=== PATIENT | male | born 2005 | race Hispanic/Latino ===

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

== ENCOUNTER 2024-02-05 13:03 | Emergency (ER) | payer SELFPAY ==
--- OUTSIDE RECORDS SUMMARY | 2024-02-05 13:06 | XMS REPORT | Continuity of Care Document ---
Author Name Unknown Address [address] [place] [address] [place] [address] thconnect Address [address] [place] [address] [address] [place] [address] Care Team Providers Care Java Developer Name Role Phone MEGHANA VERDUGO Attending Clinician Unavailabl e Lab, Adc Fam Pob I Attending Clinician Jeniffer le Meghana Izquierdo Attending Clinician Allergies, Adverse Reactions, Alerts Allergy Name Allergy Type Status Severity Reaction(s) Onset Date Inactive Date Treating Clinician Comments Source NO KNOWN ALLERGIE S Drug Class Active [facility] Social History Social Habit Start Date Stop Date Quantity Comments Source Sex Assigned At [facility] Exposure to SARS-CoV-2 (event) Yes [facility] Smoking Status Start Date Stop Date Source Unknown if ever smoked Unive [facility] Encounters Start Date/Time End Date/Time Encounter Type Admission Type Attending Clinicians Care Facility Care Department Encounter ID Source 2019-12-01 17:00:00 2019-12-01 17:00:00 Outpatient R MEGHANA VERDUGO [facility] [id number] [facility] 2019-12-01 14:39:38 2019-12-01 14:59:38 Laboratory Only Lab, Adc Fam Pob I Meghana Verdugo [facility] [address] [id number] [facility]
[2024-02-05 14:00] LABS: SARS-CoV-2 Antigen CONTROL BLUE LINE VIS/BG OK; SARS-CoV-2 Antigen Rapid Res Negative (Negative)
--- NOTE | 2024-02-05 14:18 | ER ---
Nurse's Notes [facility] Name: Danny Mar Age: 18 yrs Sex: Male : 2005 Arrival Date: 02/05/2024 Time: 13:03 Bed 12 Private MD: Diagnosis: Hemoptysis;Cough;Tobacco abuse counseling;Tobacco use Presentation: 02/04 13:20 Chief complaint: Patient states: Cough X1 week. Pt states that today he started having cm10 blood tinged sputum. Coronavirus screen: Client denies travel out of the [place] in the last 14 days. Ebola Screen: Patient denies travel to an Ebola-affected area in the 21 days before illness onset. No symptoms or risks identified at this time. Initial Sepsis Screen: Does the patient meet any 2 criteria? No. Patient's initial sepsis screen is negative. Does the patient have a suspected source of infection? No. Patient's initial sepsis screen is negative. Risk Assessment: Do you want to hurt yourself or someone else? Patient reports no desire to harm self or others. Onset of symptoms was February 05, 2024. 13:20 Method Of Arrival: Ambulatory cm10 13:20 Acuity: BRITTANY 4 cm10 Triage Assessment: 13:21 General: Appears in no apparent distress. comfortable, Behavior is calm, cooperative. cm10 Neuro: No deficits noted. Level of Consciousness is awake, alert, obeys commands, Oriented to person, place, time, situation, Appropriate for age. Respiratory: No deficits noted. Airway is patent Respiratory effort is even, unlabored, Respiratory pattern is regular, symmetrical. Historical: - Allergies: 13:21 No Known Allergies; cm10 - Home Meds: 13:21 None [Active]; cm10 - PMHx: 13:21 None; cm10 - PSHx: 13:21 None; cm10 - Immunization history:: Adult Immunizations up to date. - Infectious Disease History:: Denies. - Social history:: Smoking status: Patient denies any tobacco usage or history of. Patient uses street drugs, marijuana. Screenin:15 [facility] ED Fall Risk Assessment (Adult) History of falling in the last 3 months, hb including since admission No falls in past 3 months (0 pts) Confusion or Disorientation No (0 pts) Intoxicated or Sedated No (0 pts) Impaired Gait No (0 pts) Mobility Assist Device Used No (0 pt) Altered Elimination No (0 pt) Score/Fall Risk Level 0 - 2 = Low Risk Oriented to surroundings, Maintained a safe environment, Educated pt \T\ family on fall prevention, incl call for assistance when getting out of bed. Abuse screen: Denies threats or abuse. Denies injuries from another. Nutritional screening: No deficits noted. Tuberculosis screening: No symptoms or risk factors identified. Assessment: 14:15 General: Appears in no apparent distress. Behavior is calm, cooperative. Pain: Pain hb currently is 3 out of 10 on a pain scale. 14:15 Neuro: Level of Consciousness is awake, alert, obeys commands, Oriented to person, hb place, time, situation. Cardiovascular: Patient's skin is warm and dry. Respiratory: Reports cough that is Respiratory effort is even, unlabored, Respiratory pattern is regular, symmetrical. GI: No signs and/or symptoms were reported involving the gastrointestinal system. : No signs and/or symptoms were reported regarding the genitourinary system. EENT: No signs and/or symptoms were reported regarding the EENT system. Derm: Skin is pink, warm \T\ dry. Musculoskeletal: No signs and/or symptoms reported regarding the musculoskeletal system. Vital Signs: 13:20 BP 142 / 88; Pulse 76; Resp 16; Temp 97.2; Pulse Ox 100% ; Weight 49.44 kg; Height 5 cm10 ft. 7 in. ; Pain 8/10; 13:20 Body Mass Index 17.07 (49.44 kg, 170.18 cm) - Percentile 0.2 % cm10 13:20 Pain Scale: Adult cm10 ED Course: 13:09 Patient arrived in ED. ra3 13:15 Papi Davis MD is Attending Physician. laurence 13:21 Triage completed. cm10 13:22 Arm band placed on Patient placed in an exam room, on a stretcher. cm10 13:27 Strep Sent. cm10 13:27 Flu Sent. cm10 13:27 SARS RAPID Sent. cm10 13:27 COVID swab sent to lab. Flu and/or RSV swab sent to lab. Strep swab sent to lab. cm10 14:15 Patient has correct armband on for positive identification. Provided Education on: hb medication, follow up. 14:15 No provider procedures requiring assistance completed. Patient did not have IV access hb during this emergency room visit. 14:56 Chest Pa And Lat (2 Views) XRAY In Process Unspecified. EDMS Administered Medications: No medications were administered Medication: 14:15 VIS not applicable for this client. hb Outcome: 14:15 Discharged to home ambulatory, hb 14:15 Condition: stable 14:15 Discharge instructions given to patient, Instructed on discharge instructions, follow up and referral plans. medication usage, Demonstrated understanding of instructions, follow-up care, medications, Prescriptions given X 1, 14:17 Discharge ordered by MD. dang 15:11 Patient left the ED. hb Signatures: Dispatcher [employer] EDMS Papi Davis MD MD cha Baxter, Heather RN RN Purnima Song RN RN Liat Quintanilla 3
--- NOTE | 2024-02-05 14:18 | EDPHYS ---
Physician Documentation [facility] Name: Danny Mar Age: 18 yrs Sex: Male : 2005 Arrival Date: 02/05/2024 Time: 13:03 Bed 12 Private MD: ED Physician Papi Davis HPI: 02/04 14:13 This 18 yrs old Male presents to ER via Ambulatory with complaints of Painful laurence Cough - coughing up blood. 14:13 The patient or guardian reports cough, that is intermittent. Onset: The laurence symptoms/episode began/occurred 3 day(s) ago. Severity of symptoms: At their worst the symptoms were mild, in the emergency department the symptoms are unchanged. Modifying factors: The symptoms are alleviated by nothing, the symptoms are aggravated by nothing. The patient has not experienced similar symptoms in the past. Historical: - Allergies: 13:21 No Known Allergies; cm10 - Home Meds: 13:21 None [Active]; cm10 - PMHx: 13:21 None; cm10 - PSHx: 13:21 None; cm10 - Immunization history:: Adult Immunizations up to date. - Infectious Disease History:: Denies. - Social history:: Smoking status: Patient denies any tobacco usage or history of. Patient uses street drugs, marijuana. ROS: 14:13 Constitutional: Negative for fever, chills, and weight loss, Eyes: Negative for injury, laurence pain, redness, and discharge, ENT: Negative for injury, pain, and discharge, Neck: Negative for injury, pain, and swelling, Cardiovascular: Negative for chest pain, palpitations, and edema, Abdomen/GI: Negative for abdominal pain, nausea, vomiting, diarrhea, and constipation, Back: Negative for injury and pain, : Negative for injury, bleeding, discharge, and swelling, MS/Extremity: Negative for injury and deformity, Skin: Negative for injury, rash, and discoloration, Neuro: Negative for headache, weakness, numbness, tingling, and seizure, Psych: Negative for depression, anxiety, suicide ideation, homicidal ideation, and hallucinations, Allergy/Immunology: Negative for hives, rash, and allergies, Endocrine: Negative for neck swelling, polydipsia, polyuria, polyphagia, and marked weight changes, Hematologic/Lymphatic: Negative for swollen nodes, abnormal bleeding, and unusual bruising, 14:13 Respiratory: Positive for cough, hemoptysis, Exam: 14:13 Constitutional: This is a well developed, well nourished patient who is awake, alert, laurence and in no acute distress. Head/Face: Normocephalic, atraumatic. Eyes: Pupils equal round and reactive to light, extra-ocular motions intact. Lids and lashes normal. Conjunctiva and sclera are non-icteric and not injected. Cornea within normal limits. Periorbital areas with no swelling, redness, or edema. ENT: Nares patent. No nasal discharge, no septal abnormalities noted. Tympanic membranes are normal and external auditory canals are clear. Oropharynx with no redness, swelling, or masses, exudates, or evidence of obstruction, uvula midline. Mucous membranes moist. Neck: Trachea midline, no thyromegaly or masses palpated, and no cervical lymphadenopathy. Supple, full range of motion without nuchal rigidity, or vertebral point tenderness. No Meningismus. Chest/axilla: Normal chest wall appearance and motion. Nontender with no deformity. No lesions are appreciated. Cardiovascular: Regular rate and rhythm with a normal S1 and S2. No gallops, murmurs, or rubs. Normal PMI, no JVD. No pulse deficits. Respiratory: Lungs have equal breath sounds bilaterally, clear to auscultation and percussion. No rales, rhonchi or wheezes noted. No increased work of breathing, no retractions or nasal flaring. Back: No spinal tenderness. No costovertebral tenderness. Full range of motion. Male : Normal genitalia with no discharge or lesions. Skin: Warm, dry with normal turgor. Normal color with no rashes, no lesions, and no evidence of cellulitis. 14:13 Respiratory: the patient does not display signs of respiratory distress, Respirations: normal, Breath sounds: are clear throughout, Respiratory rate: 16 14:13 Abdomen/GI: Inspection: abdomen appears normal, Vital Signs: 13:20 BP 142 / 88; Pulse 76; Resp 16; Temp 97.2; Pulse Ox 100% ; Weight 49.44 kg; Height 5 cm10 ft. 7 in. ; Pain 8/10; 13:20 Body Mass Index 17.07 (49.44 kg, 170.18 cm) - Percentile 0.2 % cm10 13:20 Pain Scale: Adult cm10 MDM: 13:16 Patient medically screened. [facility] 14:15 Differential Diagnosis: Obstructed Airway. Data reviewed: vital signs, nurses notes, [facility] radiologic studies, plain films. Consideration of Admission/Observation Escalation of care including admission/observation considered. I considered the following discharge prescriptions or medication management in the emergency department Medications were administered in the Emergency Department. See JUL. 02/04 13:16 Order name: SARS RAPID; Complete Time: 14:10 [facility] 02/04 13:16 Order name: Flu; Complete Time: 14:10 [facility] 02/04 13:16 Order name: Strep [facility] 02/04 14:03 Order name: Throat Culture [facility] 02/04 13:16 Order name: Chest Pa And Lat (2 Views) XRAY [facility] Administered Medications: No medications were administered Disposition Summary: 02/05/24 14:17 Discharge Ordered Notes: Location: Home [facility] Problem: new laurence Symptoms: have improved laurence Condition: Stable laurence Diagnosis - Hemoptysis laurence - Cough laurence - Tobacco abuse counseling laurence - Tobacco use laurence Followup: laurence - With: Private Physician - When: 2 - 3 days - Reason: Recheck today's complaints, Continuance of care, Re-evaluation by your physician Discharge Instructions: - Discharge Summary Sheet laurence - Hemoptysis laurence - Self-Destructive Behavior laurence - Steps to Quit Smoking laurence - Health Risks of Smoking laurence - Cool Mist Vaporizer laurence - Steps to Quit Smoking, Irrx-mx-Koym laurence - Cough, Adult, [id number]-bv-[id number] laurence - Cough, Adult laurence Forms: - Medication Reconciliation Form laurence - Antibiotic Education laurence - Prescription Opioid Use laurence - Patient Portal Instructions [facility] - Leadership Thank You Letter [facility] Prescriptions: - Tessalon Perles 100 mg Oral capsule - take 1 capsule ORAL route every 8 hours As needed; 30 capsule; Refills: 0, laurence Product Selection Permitted - Zithromax Z-Abdirahman 250 mg Oral tablet - take 1 tablet ORAL route as directed for 5 days Day 1 - take two (2) tablets laurence one time. Day 2, 3, 4 , 5 take one (1) tablet once daily.; 6 tablet; Refills: 0, Product Selection Permitted Signatures: Dispatcher [employer] Papi Yeh MD MD cha Martinez, Clarissa, RN RN cm10 Corrections: (The following items were deleted from the chart) 13:16 13:16 SARS-COV-2 Antigen Rapid+I.LAB.BRZ ordered. EDMS EDMS 13:16 13:16 Influenza Screen (A \T\ B)+BA.LAB.BRZ ordered. EDMS EDMS
[2024-02-05] MEDS ORDERED: AZITHROMYCIN 250 MG TAB ONE (14:59)
[2024-02-05 15:17] VITALS: BP 142/88; TEMP 97.2; O2SAT 100
--- NOTE | 2024-02-05 15:25 | RAD REPORT ---
EXAM DESCRIPTION: Chely oCntreras (2 Views)02/05/2024 2:55 pm CLINICAL HISTORY: Cough COMPARISON: 2012 FINDINGS: The lungs appear clear of acute infiltrate. The heart is normal size IMPRESSION: No acute abnormalities displayed
== END 2024-02-05 15:11 | disposition home or self-care (01) ==
LOC: ER 13:03
DX: R05.9 Cough, unspecified (principal); R04.2 Hemoptysis; F17.210 Nicotine dependence, cigarettes, uncomplicated; Z71.6 Tobacco abuse counseling; Z11.52 Encounter for screening for COVID-19
CPT/HCPCS: 36415; 71046; 87070; 87081; 87804; 87811; 99283

== ENCOUNTER 2024-06-22 14:10 | Emergency (ER) | payer SELFPAY ==
--- OUTSIDE RECORDS SUMMARY | 2024-06-22 14:13 | XMS REPORT | Continuity of Care Document ---
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 [place] [place] Exposure to SARS-CoV-2 (event) Yes [facility] Smoking Status Start Date Stop Date Source Unknown if ever smoked Unive [facility] Encounters Start Date/Time End Date/Time Encounter Type Admission Type Attending Clinicians Care Facility Care Department Encounter ID Source 2019-12-01 17:00:00 2019-12-01 17:00:00 Outpatient R MAXIMO VERDUGO [facility] [id number] [facility] 2019-12-01 14:39:38 2019-12-01 14:59:38 Laboratory Only Lab, Adc Fam Pob I Maximo Verdugo [facility] Office [facility] One [id number] [facility]
--- NOTE | 2024-06-22 14:38 | EDPHYS ---
Physician Documentation [facility] Name: Danny Mar Age: 19 yrs Sex: Male : 2005 Arrival Date: 06/22/2024 Time: 14:10 Bed Waiting Private MD: ED Physician Ranulfo Vega HPI: 06/22 14:30 This 19 yrs old Male presents to ER via Unassigned with complaints of Nose rn twitching. 14:30 The patient presents with Twitching. rn 14:32 Onset: The symptoms/episode began/occurred yesterday. Modifying factors: The symptoms rn are alleviated by nothing. the symptoms are aggravated by nothing. Severity of symptoms: At their worst the symptoms were mild in the emergency department the symptoms have improved. The patient has not experienced similar symptoms in the past. Patient reports noticed twitching of nose yesterday. Was researching what it could be and made himself more anxious. Father brought him in to reassure him. No difficulty breathing, no pain, no swelling, no eye involvement. No drainage. No fever or chills. No sinus problems. Currently seems resolved. No other muscular twitching of body.. Historical: - Allergies: 14:52 No Known Allergies; jl7 - Immunization history:: Adult Immunizations unknown. - Family history:: not pertinent. - Social history:: Smoking status: unknown. - Hospitalizations: : No recent hospitalization is reported. ROS: 14:32 Constitutional: Negative for fever, chills, and weight loss, Eyes: Negative for injury, rn pain, redness, and discharge, ENT: Negative for injury, pain, and discharge, Neck: Negative for injury, pain, and swelling, Cardiovascular: Negative for chest pain, palpitations, and edema, Respiratory: Negative for shortness of breath, cough, wheezing, and pleuritic chest pain, Neuro: Negative for headache, weakness, numbness, tingling, and seizure, Exam: 14:32 Constitutional: This is a well developed, well nourished patient who is awake, alert, rn and in no acute distress. Seems anxious and soft-spoken Head/Face: Normocephalic, atraumatic. ENT: Mild nasal turbinate swelling, no foreign body, no asymmetric swelling, no tenderness of nose or sinus, no erythema or swelling of cheek or periorbital regions. No visible twitching at this time. Respiratory: No increased work of breathing, no retractions or nasal flaring. Vital Signs: 14:49 jl7 14:49 None obtained jl7 MDM: 14:15 Medical Screening Exam initiated rn 14:32 Differential diagnosis: stress, stress reaction, muscle twitching, spasm. Data rn reviewed: vital signs, nurses notes, and as a result, I will discharge patient. Counseling: I had a detailed discussion with the patient and/or guardian regarding the historical points, exam findings, and any diagnostic results supporting the discharge/admit diagnosis, the need for outpatient follow up, to return to the emergency department if symptoms worsen or persist or if there are any questions or concerns that arise at home. Special discussion: I discussed with the patient/guardian in detail that at this point there is no indication for admission to the hospital. It is understood, however, that if the symptoms persist or worsen the patient needs to return immediately for re-evaluation. 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 Seems anxious Head/Face: Normocephalic, atraumatic. ENT: Mild nasal turbinate swelling, no foreign body, no asymmetric swelling, no tenderness of nose or sinus, no erythema or swelling of cheek or periorbital regions. No visible twitching at this time. Respiratory: No increased work of breathing, no retractions or nasal flaring. rn
--- NOTE | 2024-06-22 14:55 | ER ---
Nurse's Notes [facility] Name: Danny Mar Age: 19 yrs Sex: Male : 2005 Arrival Date: 06/22/2024 Time: 14:10 Bed Waiting Private MD: Diagnosis: Nasal twitching Presentation: 06/22 14:49 Chief complaint: ERP assessed pt and informed pt he would be discharged. Pt left as jl7 soon as ERP was done with his assessment. Coronavirus screen: At this time, the client does not indicate any symptoms associated with coronavirus-19. Ebola Screen: No symptoms or risks identified at this time. Initial Sepsis Screen: Does the patient have a suspected source of infection? No. Patient's initial sepsis screen is negative. Onset of symptoms is unknown. 14:49 Method Of Arrival: Ambulatory jl7 14:49 Acuity: BRITTANY 4 jl7 Historical: - Allergies: 14:52 No Known Allergies; jl7 - Immunization history:: Adult Immunizations unknown. - Family history:: not pertinent. - Social history:: Smoking status: unknown. - Hospitalizations: : No recent hospitalization is reported. Vital Signs: 14:49 jl7 14:49 None obtained jl7 ED Course: 14:12 Patient arrived in ED. im 14:15 Ranulfo Vega MD is Attending Physician. rn 14:52 Triage completed. jl7 Administered Medications: No medications were administered Outcome: 14:37 Discharge ordered by . rn 14:53 Discharged to home ambulatory, jl7 14:53 Condition: stable 14:53 Discharge instructions given to patient, ERP gave verbal discharge instructions 14:54 Patient left the ED. jl Signatures: Ranulfo Vega MD MD rn Leal, Jahala, RN RN jl7 Charis Ram im
== END 2024-06-22 14:54 | disposition home or self-care (01) ==
LOC: ER 14:10
DX: R25.3 Fasciculation (principal)
CPT/HCPCS: 99282